=== PATIENT | male | born 1990 | race African-American/Black ===

== ENCOUNTER 2019-11-07 06:31 | Emergency (ER) | payer SELFPAY ==
[~2019-11-07] VITALS: Ht 175.3 cm; Wt 85.3 kg
[2019-11-07 06:40] VITALS: BP 145/96
--- NOTE | 2019-11-07 06:54 | Emergency Room Report ---
History of Present Illness General Chief Complaint: Toothache Source: Patient Present Illness HPI The patient presents with 2 days of left lower molar pain. He is not taking any medication. He denies any fevers or chills. The pain radiates somewhat into his jaw. There is no nausea, vomiting or diarrhea. He is never had this problem before. The patient was transported by EMS. Allergies: Coded Allergies: No Known Allergies (Unverified , 11/07/19) Patient History Past Medical History: see triage record Social History: Reports: smoking, drug use Social History Narrative correction Reviewed Nursing Documentation: PMH: Agreed; PSxH: Agreed Nursing Documentation-PMH Past Medical History: No History, Except For History Of Psychiatric Problem: Yes - depression Review of Systems Constitutional: Reports: see HPI ENT: Reports: see HPI Respiratory: Denies: cough Cardiovascular: Denies: chest pain Gastrointestinal: Reports: see HPI Musculoskeletal: Reports: see HPI Skin: Denies: rash Neurological: Denies: headache Physical Exam Vital Signs Date Time Temp Pulse Resp B/P (MAP) Pulse Ox O2 Delivery O2 Flow Rate FiO2 11/07/19 06:27 99.1 93 20 145/96 (112) 100 Room Air Sp02 EP Interpretation: reviewed, normal General Appearance: well appearing, no apparent distress, GCS 15 Head: normocephalic Eyes: bilateral eye normal inspection, bilateral eye PERRL, bilateral eye EOMI ENT: normal pharynx, moist mucus membranes, other - Impacted wisdom tooth with some erythema left lower Respiratory: chest non-tender, lungs clear Cardiovascular #1: regular rate, rhythm Cardiovascular #2: 2+ radial (L) Gastrointestinal: normal inspection Musculoskeletal: gait/station normal Neurologic: alert Medical Decision Making Diagnostic Impression: Primary Impression: Toothache ER Course Patient presents with 2 days of tooth pain. Differential includes dental abscess, impacted wisdom tooth, other dental pain amongst others. The patient will be treated with this is lidocaine and Motrin. In addition antibiotics are begun. Improved with treatment. Pain resolved. Patient stable for outpatient observation and treatment. Last Vital Signs Date Time Temp Pulse Resp B/P (MAP) Pulse Ox O2 Delivery O2 Flow Rate FiO2 11/07/19 08:04 99.1 98 20 145/96 100 Room Air Status: improved Disposition: HOME, SELF-CARE Condition: Improved Scripts Amoxicillin* (AMOXIL*) 500 Mg Capsule 500 MG ORAL THREE TIMES A DAY, #21 CAP Prov: Rajan Dumont MD 11/07/19 Acetaminophen (Tylenol) 325 Mg Tablet 650 MG ORAL Q6H PRN for Prn Pain/Headache/Temp > 101, #20 TAB 0 Refills Prov: Rajan Dumont MD 11/07/19 Ibuprofen* (MOTRIN*) 600 Mg Tablet 600 MG ORAL Q6H PRN for For Pain, #16 TAB 0 Refills Prov: Rajan Dumont MD 11/07/19 Lidocaine HCl 2% Viscous (Lidocaine HCl 2% Viscous) 100 Ml Solution 1 APPLIC ORAL QID, #30 ML Prov: Rajan Dumont MD 11/07/19 Rajan Dumont MD Nov 07, 2019 06:54
[2019-11-07] MEDS ORDERED: Lidocaine 2% Visc 15ml soln ORAL ONE (07:00)
[2019-11-07] MEDS ORDERED: LIDOCAINE VISC100 ML ORAL (07:52)
[2019-11-07] MEDS ORDERED: TYLENOL325 MG ORAL (07:52)
[2019-11-07] MEDS ORDERED: IBUPROFEN600 MG ORAL (07:52)
[2019-11-07] MEDS ORDERED: AMOXICILLIN500 MG ORAL (07:52)
[2019-11-07 08:04] VITALS: BP 145/96
== END 2019-11-07 08:00 | disposition home or self-care (01) ==
LOC: EDBD 06:31 → EMR 07:20
DX: K08.89 Other specified disorders of teeth and supporting structures (principal); F17.200 Nicotine dependence, unspecified, uncomplicated; F32.9 Major depressive disorder, single episode, unspecified
CPT/HCPCS: 99282